=== PATIENT | male | born 1980 | race Caucasian/White ===

== ENCOUNTER → 2023-06-12 06:27 | Day surgery (SDC) | payer OTHER, SELFPAY | LOC: GI 06:27 | PROVIDERS: ATTENDING PHYSICIAN Internal Medicine Gastroenterology | DX: K31.7 Polyp of stomach and duodenum (principal); K31.A0 Gastric intestinal metaplasia, unspecified; K29.50 Unspecified chronic gastritis without bleeding | CPT/HCPCS: 43239; 88305; 88342 ==

== ENCOUNTER 2025-03-14 06:22 | Day surgery (SDC) | payer OTHER, SELFPAY | END 2025-03-14 13:15 | disposition home or self-care (01) | LOC: GI 06:22 | PROVIDERS: ATTENDING PHYSICIAN Internal Medicine Gastroenterology; FAMILY PHYSICIAN Hospitalist | DX: Z12.11 Encounter for screening for malignant neoplasm of colon (principal); K51.50 Left sided colitis without complications; K64.8 Other hemorrhoids; K51.40 Inflammatory polyps of colon without complications; K62.89 Other specified diseases of anus and rectum; K63.5 Polyp of colon | CPT/HCPCS: 45380; 88305 ==